=== PATIENT | female | born 1995 | race Caucasian/White ===

== ENCOUNTER → 2020-05-26 15:08 | Outpatient (CLI) | payer OTHER, SELFPAY ==
[2020-05-26 14:02] VITALS: BMI 28.6
--- NOTE | 2020-05-26 15:10 | RAD_ITS ---
STUDY: X-RAY CHEST REASON FOR EXAM: Female, 25 years old. HX OF OSTEO CARCOMA TECHNIQUE: PA and lateral views of the chest. COMPARISON: Comparison is made with prior examination dated 07/16/2014. FINDINGS: The lungs are clear and expanded. There is no demonstrated pleural abnormality. Normal size heart. Normal mediastinum and neris. Normal visualized pulmonary arteries. Normal visualized aortic arch and descending thoracic aorta. Normal visualized thoracic spine. Normal visualized ribs, clavicles, and shoulders. There is no demonstrated abnormality of the visualized soft tissue structures of the upper abdomen. RAD/Chest PA and Lateral IMPRESSION: Normal x-ray examination of the chest. Electronically Signed: Talon Denise MD at 14:56 EDT , Service support ,
== END ==
PROVIDERS: PCP Nurse Practitioner Family; Referring Provider Internal Medicine Medical Oncology; Visit Provider Internal Medicine Medical Oncology
DX: Z08 Encounter for follow-up examination after completed treatment for malignant neoplasm (principal); Z85.830 Personal history of malignant neoplasm of bone
CPT/HCPCS: 71046

== ENCOUNTER 2021-05-19 16:01 | Outpatient (CLI) | payer OTHER, SELFPAY ==
--- NOTE | 2021-05-19 16:05 | RAD_ITS ---
HISTORY: History of osteosarcoma. TECHNIQUE: XR Chest 2 Views. # of images incl. paperwork: 2. COMPARISON: 05/26/2020. FINDINGS: CARDIOMEDIASTINAL STRUCTURES: Cardiac silhouette not enlarged. Mediastinal contour unremarkable. LUNGS: Radiographically clear. PLEURA: No pleural effusion or pneumothorax. OSSEOUS STRUCTURES: Small bone island in the right humeral head again seen. RAD/Chest PA and Lateral IMPRESSION: No radiographic evidence of acute cardiopulmonary disease. at 0912 Reported and signed by: Mile England MD Electronically Signed: Mile England MD at 9:11 EDT ,
== END 2021-05-19 23:59 | disposition home or self-care (01) ==
LOC: RAD 16:03
PROVIDERS: PCP Nurse Practitioner Family; Referring Provider Internal Medicine Medical Oncology; Visit Provider Internal Medicine Medical Oncology
DX: Z13.9 Encounter for screening, unspecified (principal); Z85.830 Personal history of malignant neoplasm of bone
CPT/HCPCS: 71046

== ENCOUNTER → 2022-05-16 | Outpatient (CLI) | payer OTHER, SELFPAY ==
--- NOTE | 2022-05-16 16:38 | RAD_ITS ---
INDICATION: Follow-up osteosarcoma. EXAMINATION/TECHNIQUE: X-RAY - XR Chest 2 Views COMPARISON: May 19, 2021 chest x-ray. FINDINGS: LINES/DEVICES: None. LUNGS: No focal airspace consolidation, edema or effusion. No pneumothorax. MEDIASTINUM AND CARDIOVASCULAR STRUCTURES: Cardiac silhouette not enlarged. Central airways and mediastinal contour are unremarkable. BONES AND SOFT TISSUES: Unremarkable for age. RAD/Chest PA and Lateral IMPRESSION: No acute cardiopulmonary disease. Electronically Signed: Rodo De La Garza MD at 15:45 EDT ,
== END | disposition home or self-care (01) ==
LOC: RAD 16:11
PROVIDERS: PCP Nurse Practitioner Family; Visit Provider Internal Medicine Medical Oncology
DX: Z08 Encounter for follow-up examination after completed treatment for malignant neoplasm (principal); Z85.830 Personal history of malignant neoplasm of bone
CPT/HCPCS: 71046

== ENCOUNTER → 2022-11-27 | Outpatient (CLI) | payer SELFPAY, OTHER ==
--- NOTE | 2022-11-27 08:24 | MRI_ITS ---
STUDY: MRI LOWER EXTREMITY RIGHT TIBIA/FIBULA WITH AND WITHOUT CONTRAST REASON FOR EXAM: Female, 27 years old. Right leg mass. History of prior surgery for bone cancer 2012. Now has redness, lumps. Area marked with oil beads. TECHNIQUE: Standardized fat and water weighted pulse sequences were obtained in all 3 orthogonal planes, pre and post contrast administration. 17 mL IV Clariscan was administered for the contrast portion of the examination. COMPARISON: None. FINDINGS: Skin markers were placed along the mid to distal anteromedial hare region at the site of clinical concern. There is moderate subcutaneous soft tissue edema along the anteromedial aspect of the distal half of the hare. There is no solid, cystic or lipomatous mass lesion of the subcutis adipose space. There is no abnormal contrast enhancement. Normal tibia and fibula, without a periosteal, cortical or cancellous marrow abnormality. There is minimal atrophy and fatty infiltration of the anterior calf compartment muscles (axial T1 series 5 images 13-18). Normal lateral and posterior calf compartments, with normal muscles, crural fascia and intermuscular septa. MRI/Lower Ext No Joint W/WO Cont IMPRESSION: Moderate subcutaneous soft tissue edema along the anteromedial aspect of the distal half of the hare. No abnormal enhancing soft tissue mass. Minimal atrophy and fatty infiltration of the anterior calf compartment muscles. Electronically Signed: Champ Gutierrez MD at 13:05 EDT ,
== END | disposition home or self-care (01) ==
PROVIDERS: PCP Nurse Practitioner Family; Referring Provider Orthopaedic Surgery; Visit Provider Orthopaedic Surgery
DX: R22.41 Localized swelling, mass and lump, right lower limb (principal)
CPT/HCPCS: 73720; A9575

== ENCOUNTER → 2022-12-07 | Outpatient (CLI) | payer OTHER, SELFPAY ==
[2022-12-07 16:19] LABS: Absolute Lymphocyte Count 1.96 X10^3/uL (0.83-4.51); Absolute Neutrophil Count 3.7 X10^3/uL (2.0-7.7); Basophil# 0.03 X10^3/uL; Basophil% 0.5 % (0-1); Eosinophil# 0.08 X10^3/uL; Eosinophils% 1.3 % (0-5); Hematocrit 38.5 % (37-47); Hemoglobin 12.4 g/dL (12.0-15.0); Lymphocyte # 1.96 X10^3/ul (0.83-4.51); Lymphocyte % 30.6 % (19-41); Mean Corp Hgb Conc 32.2 g/dL (32-36); Mean Corpuscular Hgb 29.9 pg (27.0-32.0); Mean Corpuscular Volume 92.8 fL (81-99); Monocyte# 0.59 X10^3/uL; Monocyte% 9.2 % (0-10); NRBC Flagged by Analyzer 0 % (0-5); Neutrophil # 3.72 X10^3/uL (2.7-7.7); Neutrophil % 58.1 % (47-70); Platelet Count 285 K/mm3 (150-450); RBC Distribution Width CV 12.7 % (11.6-14.6); RBC Distribution Width SD 43.1 fl (35.1-43.9); Red Blood Count 4.15 M/mm3 (4.2-5.4); White Blood Count 6.4 K/mm3 (4.4-11.0)
[2022-12-07 16:27] LABS: Erythrocyte Sedimentation Rate 8 mm/hr (0-30)
[2022-12-07 16:49] LABS: CRP < 2.90 mg/L (0.0-3.0)
== END | disposition home or self-care (01) ==
PROVIDERS: PCP Nurse Practitioner Family; Referring Provider Orthopaedic Surgery; Visit Provider Orthopaedic Surgery
DX: M79.89 Other specified soft tissue disorders (principal)
CPT/HCPCS: 36415; 85025; 85652; 86140

== ENCOUNTER → 2023-05-15 | Outpatient (CLI) | payer SELFPAY, OTHER ==
--- NOTE | 2023-05-15 10:30 | RAD_ITS ---
INDICATION: SARCOMA EXAMINATION/TECHNIQUE: X-RAY - XR Chest 2 Views COMPARISON: 05/16/22 chest radiograph. Findings: Frontal and lateral views of the chest. LUNG PARENCHYMA: No acute focal airspace disease or mass lesion. PLEURA: No pleural effusion. No pneumothorax. HEART/GREAT VESSELS: Cardiomediastinal silhouette is unremarkable. BONES: Osseous structures are unremarkable for age. RAD/Chest PA and Lateral IMPRESSION: Stable chest with no acute disease. Electronically Signed: Pop Alcantara MD at 6:22 EDT ,
== END | disposition home or self-care (01) ==
PROVIDERS: PCP Nurse Practitioner Family; Referring Provider Internal Medicine Medical Oncology; Visit Provider Internal Medicine Medical Oncology
DX: J20.9 Acute bronchitis, unspecified (principal); C49.9 Malignant neoplasm of connective and soft tissue, unspecified
CPT/HCPCS: 71046

== ENCOUNTER → 2023-08-23 | Outpatient (CLI) | payer OTHER, SELFPAY | END | disposition home or self-care (01) | LOC: PSN 06:43 | PROVIDERS: PCP Nurse Practitioner Family; Referring Provider Internal Medicine Cardiovascular Disease; Visit Provider Internal Medicine Cardiovascular Disease | DX: R00.2 Palpitations (principal) | CPT/HCPCS: 93225; 93226 ==

== ENCOUNTER → 2023-09-03 | Outpatient (CLI) | payer SELFPAY ==
--- NOTE | 2023-09-03 13:43 | ECHOD_ITS ---
Reason For Study: PALPITATIONS Procedure This was a 2D Doppler, Color Flow transthoracic echocardiogram. Exam performed in department. Left Ventricle Normal LV size. Left ventricular systolic function is normal. The left ventricular ejection fraction is 60 %. No regional wall motion abnormalities noted. Right Ventricle Normal RV size. Normal systolic function. Atria Normal left atrium. Normal right atrium. Mitral Valve Normal mitral valve. Tricuspid Valve Normal tricuspid valve. Aortic Valve Normal aortic valve. Trisinus/trileaflet aortic valve. Pulmonic Valve Normal pulmonic valve. Great Vessels Normal aortic root. The pulmonary artery is normal size. Normal inferior vena cava. Pericardium/Pleural No pericardial effusion. MMode/2D Measurements & Calculations LVIDd: 5.2 cm IVSd: 0.81 cm LVOT diam: 2.0 cm LVIDs: 3.1 cm LVPWd: 0.84 cm LVOT area: 3.0 cm2 RVDd: 3.4 cm FS: 41.1 % Ao root diam: 2.6 cm LAV(MOD-bp): 38.9 ml LVAd ap4: 29.6 cm2 LAV(MOD-bp) Indexed: 20.3 ml/m2 LVLd ap4: 7.4 cm LAV(MOD-sp2): 33.8 ml EDV(MOD-sp4): 96.0 ml LAV(MOD-sp4): 41.7 ml EDV(sp4-el): 100.2 ml LVAs ap4: 13.5 cm2 LVLs ap4: 5.9 cm ESV(MOD-sp4): 25.3 ml ESV(sp4-el): 26.1 ml EF(MOD-sp4): 73.6 % EF(sp4-el): 74.0 % LVAd ap2: 25.8 cm2 SV(MOD-sp4): 70.7 ml SV(MOD-sp2): 49.6 ml LVLd ap2: 7.2 cm EDV(MOD-sp2): 76.4 ml EDV(sp2-el): 78.5 ml LVAs ap2: 13.4 cm2 LVLs ap2: 5.8 cm ESV(MOD-sp2): 26.9 ml ESV(sp2-el): 26.1 ml EF(MOD-sp2): 64.8 % SV(sp4-el): 74.2 ml LA dimension(2D): 4.0 cm LA A4 area: 16.7 cm2 TAPSE: 2.2 cm Time Measurements MV dec time: 0.18 sec Doppler Measurements & Calculations MV E max mauro: 84.9 cm/sec Lat Peak E' Mauro: 16.4 cm/sec Med Peak E' Mauro: 15.4 cm/sec MV A max mauro: 53.1 cm/sec E/E' lat: 5.2 E/E' med: 5.5 MV E/A: 1.6 MV dec slope: 460.1 cm/sec2 Ao V2 max: 147.3 cm/sec LV V1 max: 109.0 cm/sec Ao max P.7 mmHg LV V1 max P.8 mmHg Ao V2 mean: 94.5 cm/sec LV V1 mean P.8 mmHg Ao mean P.4 mmHg LV V1 mean: 79.7 cm/sec Ao V2 VTI: 27.3 cm LV V1 VTI: 22.4 cm AV (velocity ratio): 0.82 YASMIN(I,D): 2.5 cm2 YASMIN(V,D): 2.2 cm2 SV(LVOT): 67.8 ml PA V2 max: 95.7 cm/sec TR max mauro: 204.5 cm/sec PA max PG (full): 1.4 mmHg TR max P.7 mmHg ECHO/Echo Complete Interpretation Summary Normal LV size. Left ventricular systolic function is normal. The left ventricular ejection fraction is 60 %. Structurally normal valves. Ordering Physician: Hammad Brand Referring Physician: Hammad Brand MD Performed By: Carol Adams RDCS and Student
== END | disposition home or self-care (01) ==
PROVIDERS: PCP Nurse Practitioner Family; Referring Provider Internal Medicine Cardiovascular Disease; Visit Provider Internal Medicine Cardiovascular Disease
DX: R00.2 Palpitations (principal)
CPT/HCPCS: 93306

== ENCOUNTER 2024-03-21 14:26 | Emergency (ER) | payer OTHER, SELFPAY ==
[2024-03-21 14:26] VITALS: BP 169/81; PULSE 128; RESP 18; TEMP 36.2; O2SAT 99; BMI 33.7
[2024-03-21 14:28] VITALS: BP 169/81; PULSE 119; RESP 18; TEMP 36.2; O2SAT 99
--- NOTE | 2024-03-21 15:54 | EX.ED.DYSGE1 ---
HPI History of Present Illness Chief Complaint: Fever Narrative Narrative: 29-year-old female who denies significant past medical history presents with fever cough, and bodyaches that began this afternoon. She does relate history that she had sick contacts in her parents with whom she lives. She denies any nausea or vomiting, no exacerbating or alleviating factors. No shortness of breath. No sore throat. She had a fever prior to arrival, did not take antipyretics, but was not febrile in triage. [facility] Medical History Palpitations Sarcoma Cellulitis of right lower leg Hematoma of right lower leg Rotating hinge replacement R Femur Resection Abnormal biopsy result Osteosarcoma Home Medications ?Medication ?Instructions ?Recorded ?Last Taken ?Type multivitamin 1 tab PO DAILY 06/24/23 Unknown History oseltamivir 75 mg capsule (Tamiflu) 75 mg PO BID 5 days #10 caps 03/21/24 Unknown Rx Allergy/AdvReac Type Severity Reaction Status Date / Time vancomycin Allergy Rash Verified 03/21/24 14:29 Family History Grandfather Prostate cancer Maternal Grandmother Heart disease Hypertension Surgical History [place] teeth extracted Social History Smoking Status: Never smoker ROS ROS ED ROS Narrative Constitutional: Positive fever, no chills. HEENT: No sore throat. No neck pain. No loss of vision. No rhinorrhea. Cardiovascular: No chest pain. No palpitations. No pedal edema. Respiratory: Positive cough, no shortness of breath. Abdominal: No abdominal pain. No nausea. No vomiting. Musculoskeletal: Multiple myalgias and arthralgias. States her body feels achy. Neurologic: No headaches. No dizziness. No lightheadedness. Skin: No rash. No change in color. EXAM Physical Exam Narrative Exam Narrative: Afebrile. Vital signs noted. Nontoxic-appearing. HEENT examination shows PERRL, EOMI. Airway patent, no drooling or trismus. No pharyngeal erythema. Neck soft and supple without meningismus. Cardiovascular examination reveals mild tachycardia. Lungs are clear to auscultation bilaterally. Abdomen soft and nontender without guarding or rebound. Neurological examination is nonfocal and nonlateralizing. Const Vital Signs: 03/21/24 14:26 03/21/24 14:28 Temperature 97.2 F L 97.2 F L Temperature Source Temporal Temporal Pulse Rate 128 H 119 H Respiratory Rate 18 18 Blood Pressure 169/81 H 169/81 H Blood Pressure Mean 110 110 Pulse Ox 99 99 Oxygen Delivery Method Room Air Room Air MDM MDM MDM Narrative Medical decision making narrative: Differential diagnosis includes but not limited to pneumothorax versus pneumonia versus viral syndrome including COVID, influenza, and RSV. She is not febrile here so I do not feel that she requires any antipyretics here. I reviewed her respiratory swab and she is positive for influenza A. As her symptoms have started within 48 hours, she was given her first Tamiflu here and prescription written to take twice a day for the next 5 days. Treatment will otherwise be symptomatic with antipyretics as directed [id number]. I feel she can be discharged and that she does not require observation or admission at this time. I do not feel that she requires a chest x-ray as I have low suspicion for pneumonia and her pulse ox is 99% on room air without evidence of hypoxia. She will follow-up with her primary care provider in 1 week if not improving. She will drink plenty of oral fluids including water. Return instructions to the emergency department were reviewed. Disposition is discharged home in stable condition. History & Record Review Discussion w/independent historian: Patient Lab Data Attestation: I reviewed the patient's lab results. Lab results narrative: Respiratory swabs positive for influenza A. Discharge Plan Triage Chief Complaint: Fever ED Provider: Kilo Tavarez Dx/Rx/DC Orders Clinical Impression: Influenza A, Viral syndrome Instructions: ED Influenza (Adult), ED Viral Syndrome (Adult) Prescriptions: New oseltamivir [Tamiflu] 75 mg capsule 75 mg PO BID 5 Days Qty: 10 0RF No Action multivitamin Tablet 1 tab PO DAILY Primary Care Provider: Dean Mathur [facility] Referrals: Dean Mathur [facility], [facility] [Primary Care Provider] - 1 Week if not improving Activity Restrictions/Additional Instructions: Take Tylenol or ibuprofen as directed for pain. Take Tamiflu as directed. Drink plenty of fluids especially water. Return with sustained high fever, new or worsening symptoms. Print Language: Setswana Disposition Disposition: Home, Self Care
[2024-03-21] MEDS: Oseltamivir Phosphate 75 MG Capsule PO (16:23)
== END 2024-03-21 16:26 | disposition home or self-care (01) ==
PROVIDERS: Emergency Provider Emergency Medicine; PCP Nurse Practitioner Family; Visit Provider Emergency Medicine
DX: J10.1 Influenza due to other identified influenza virus with other respiratory manifestations (principal)
CPT/HCPCS: 87631; 99282

== ENCOUNTER → 2024-05-23 | Outpatient (CLI) | payer OTHER, SELFPAY ==
--- NOTE | 2024-05-23 07:44 | RAD_ITS ---
PROCEDURE: CHEST PA AND LATERAL 05/23/2024 REASON FOR EXAM: SARCOMA TECHNIQUE: Frontal and lateral views of the chest. COMPARISON: None FINDINGS: Cardiomediastinal silhouette is within normal limits. Lungs are clear. No sizable pneumothorax. RAD/Chest PA and Lateral IMPRESSION: No focal airspace abnormality. Reading Location: [place]
== END | disposition home or self-care (01) ==
LOC: RAD 07:42
PROVIDERS: PCP Nurse Practitioner Family; Referring Provider Internal Medicine Medical Oncology; Visit Provider Internal Medicine Medical Oncology
DX: C49.9 Malignant neoplasm of connective and soft tissue, unspecified (principal)
CPT/HCPCS: 71046

== ENCOUNTER → 2024-07-21 | Outpatient (CLI) | payer OTHER, SELFPAY ==
[2024-07-21 20:04] LABS: Absolute Lymphocyte Count 2.07 X10^3/uL (0.83-4.51); Absolute Neutrophil Count 4.8 X10^3/uL (2.0-7.7); Basophil# 0.04 X10^3/uL; Basophil% 0.5 % (0-1); Eosinophils% 1.3 % (0-5); Hematocrit 36.3 % (37-47); Hemoglobin 11.8 g/dL (12.0-15.0); Lymphocyte # 2.07 X10^3/ul (0.83-4.51); Lymphocyte % 27.1 % (19-41); Mean Corp Hgb Conc 32.5 g/dL (32-36); Mean Corpuscular Hgb 29.5 pg (27.0-32.0); Mean Corpuscular Volume 90.8 fL (81-99); Monocyte# 0.66 X10^3/uL; Monocyte% 8.6 % (0-10); NRBC Flagged by Analyzer 0 % (0-5); Neutrophil # 4.75 X10^3/uL (2.7-7.7); Neutrophil % 62.2 % (47-70); Platelet Count 382 K/mm3 (150-450); RBC Distribution Width CV 14.2 % (11.6-14.6); RBC Distribution Width SD 46.5 fl (35.1-43.9); White Blood Count 7.6 K/mm3 (4.4-11.0)
[2024-07-21 20:30] LABS: Cholesterol 190 mg/dL (<=200); Creatinine, Serum 0.78 mg/dL (0.70-1.20); EST Glomerular Filtration Rate 105 (>60); High Density Lipoprotein 57 mg/dL
== END | disposition home or self-care (01) ==
LOC: MFPLAB 16:35
PROVIDERS: PCP Family Medicine; Referring Provider Family Medicine; Visit Provider Family Medicine
DX: R59.0 Localized enlarged lymph nodes (principal); Z13.220 Encounter for screening for lipoid disorders
CPT/HCPCS: 36415; 82465; 82565; 83718; 85025

== ENCOUNTER → 2024-07-30 | Outpatient (CLI) | payer OTHER, SELFPAY ==
[2024-08-04 12:09] LABS: Chlamydia By Nucleic Acid AMP Negative (Negative); Gonococcus By Nucleic Acid AMP Negative (Negative); Trich. Vag By Nucleic Acid AMP Negative (Negative)
== END | disposition home or self-care (01) ==
LOC: LABSPEC 09:44
PROVIDERS: PCP Family Medicine
DX: Z12.4 Encounter for screening for malignant neoplasm of cervix (principal)
CPT/HCPCS: 87491; 87591; 88175; G0145